=== PATIENT | male | born 1950 | race Caucasian/White ===

== ENCOUNTER 2018-10-08 21:42 | Inpatient (IN) | payer OTHER, MEDICAID ==
[~2018-10-08] VITALS: Ht 168.9 cm; Wt 64.5 kg
[~2018-10-08 21:42] MED LIST: ISOS30TA6 PO
[2018-10-08 21:48] VITALS: BP_SYST 164
--- NOTE | 2018-10-08 22:00 | NUR ---
Placed in room 7 . Placed on tile professional, blood pressure machine and pulse oximeter. To gown for exam. Side rails up. Report given to VIVIANA BUNDY.
--- NOTE | 2018-10-08 22:03 | NUR ---
Pt BIB ALS for possible overdose. Family states pt smoked marijuana and possibly took unknown amount of Hydrocodone. Upon assessment pt was able to answer questions appropriately but slow to respond. Pt also states he did smoke this evening but denies taking Hydrocodone. Pt denies chest pain, SOB, N/V or any other symptoms at this time. Vitals are stable, will continue to monitor.
--- NOTE | 2018-10-08 22:19 | NUR ---
Pt's daughter called and ask to be updated with any status change. [phone] Alanis
--- NOTE | 2018-10-08 22:32 | NUR ---
Patient pulled out his IV from L A/C. He stated " I have to go to the bathroom". Taped and applied dressing. Educated patient to ask assistance from staff if needed.
--- NOTE | 2018-10-08 23:20 | NUR ---
Pt is resting in bed no acute distress noted at this time
[2018-10-08] MEDS ORDERED: NACL 0.9% 1,000 ML IV ONE (23:27)
[2018-10-08 23:57] LABS: BILIRUBIN,URINE NEGATIVE (NEGATIVE); CLARITY/URINE CLEAR (CLEAR); COLOR,URINE YELLOW (YELLOW); GLUCOSE,URINE 1+ (NEGATIVE); KETONES,URINE NEGATIVE (NEGATIVE); LEUKOCYTE ESTERASE ,URINE NEGATIVE (NEGATIVE); NITRITE, URINE NEGATIVE (NEGATIVE); PROTEIN URINE TRACE (NEGATIVE); UROBILINOGEN,URINE 0.2 (0.2-1.0)
[2018-10-09] VITALS (8 sets, daily range): BP systolic 132–175
[2018-10-09 00:04] LABS: BASOPHILS # (AUTO) 0.1 K/uL (0.0-0.2); BASOPHILS % (AUTO) 0.5 % (0.0-2.0); EOSINOPHILS # (AUTO) 0.5 K/uL (0.0-0.4); EOSINOPHILS % (AUTO) 3.9 % (0.0-4.0); HEMATOCRIT 47.8 % (36-54); HEMOGLOBIN 15.6 g/dL (14.0-18.0); LYMPHOCYTES # (AUTO) 1.8 K/uL (1.0-5.5); LYMPHOCYTES % (AUTO) 15.4 % (20.5-51.5); MEAN CORPUSCULAR HEMOGLOBIN 32 pg (27-31); MEAN CORPUSCULAR HGB CONC 33 % (32-36); MEAN CORPUSCULAR VOLUME 96 fL (79.0-98.0); MONOCYTES # (AUTO) 0.7 K/uL (0.0-1.0); MONOCYTES % (AUTO) 6.1 % (1.7-9.3); NEUTROPHILS # (AUTO) 8.5 K/uL (1.8-7.7); NEUTROPHILS % (AUTO) 74.1 % (40.0-70.0); PLATELET COUNT (AUTO) 287 K/uL (130-430); RED BLOOD CELL COUNT(AUTO) 4.97 MIL/uL (4.2-6.2); RED CELL DISTRIBUTION WIDTH 12.6 % (9.0-15.0); WHITE BLOOD COUNT (AUTO) 11.6 K/uL (4.8-10.8)
[2018-10-09 00:05] LABS: ANION GAP 13 (5-15); BLOOD, URINE TRACE (NEGATIVE); CALCIUM 9.4 mg/dL (8.4-11.0); CHLORIDE 101 mmol/L (98-107); CREATININE 1.18 mg/dL (0.55-1.30); GLUCOSE 112 mg/dL (70-99); POTASSIUM 3.7 mmol/L (3.5-5.1); SODIUM SERUM 140 mmol/L (136-145); UREA NITROGEN, BLOOD 21 mg/dL (8-21)
--- NOTE | 2018-10-09 00:05 | NUR ---
Patient transported to radiology via gurney, accompanied by rad staff.
[2018-10-09 00:07] LABS: BACTERIA,URINE RARE /HPF (None Seen); WBC,URINE 0-3 /HPF (0-3)
[2018-10-09 00:08] LABS: CANNABINOID, URINE POSITIVE (NEG <=50); OPIATE, URINE POSITIVE (NEG <=100)
[2018-10-09 00:09] LABS: UR TRICYCLIC ANTIDEPRESSANTS POSITIVE (NEG <=300); URINE METHADONE POSITIVE (NEG <=200); URINE OXYCODONE SCREEN POSITIVE (NEG <=100)
[2018-10-09 00:10] LABS: BARBITURATE, URINE NEGATIVE (NEG <=200); BENZODIAZEPINE, URINE NEGATIVE (NEG <=150); COCAINE, URINE NEGATIVE (NEG <=150); METHAMPHETAMINES SCREEN,URINE NEGATIVE (NEG <=500); PHENCYCLIDINE SCREEN,URINE NEGATIVE (NEG <=25); PROTHROMBIN TIME 10.7 SECS (9.5-12.5); URINE AMPHETAMINE NEGATIVE (NEG <=500); URINE PROPOXYPHENE SCREEN NEGATIVE (NEG <=300)
[2018-10-09 00:11] LABS: ALANINE AMINOTRANSFERASE 57 U/L (12-78); ALBUMIN 4.3 g/dL (3.4-4.8); ASPARTATE AMINOTRANSFERASE 130 U/L (10-37); TOTAL BILIRUBIN 0.5 mg/dL (0.0-1.0)
[2018-10-09 00:14] LABS: ALCOHOL, BLOOD < 3 mg/dL (<10); GFR AFRICAN AMERICAN 79 mL/min (>90)
--- NOTE | 2018-10-09 00:20 | NUR ---
Pt returned from radiology in stable condition. No acute distress noted at this time. Will continue to monitor.
[2018-10-09] MEDS ORDERED: ASPIRIN 81 MG TAB.CHEW PO ONE (00:30)
--- NOTE | 2018-10-09 01:00 | NUR ---
Patient resting quietly in no acute distress, awaiting dispo.
[2018-10-09] MEDS ORDERED: CYM30 PO (01:01)
[2018-10-09] MEDS ORDERED: IRBE75TA29 PO (01:02)
[2018-10-09] MEDS ORDERED: HYDR-3606 PO (01:05)
[2018-10-09] MEDS ORDERED: HYDR-3110 PO (01:05)
--- NOTE | 2018-10-09 01:20 | NUR ---
Patient will be admitted to care of Dr Hermosillo. Admitted to tele unit. Will go to room 135 then 107. Belongings list completed. Summary report printed. Report will be given at bedside. Transfer to tele room 135 then 107 via ACLS protocol. Licensed nurse present. IV present no signs or symptoms of infiltration.
--- NOTE | 2018-10-09 01:35 | NUR ---
ADMISSION: The patient, JANE PRICE, 68 y/o, M admitted by JOSHUA REYES MD, with the diagnosis of NSTEMI .was given written information regarding hospital policies, unit procedures and contact persons.
--- NOTE | 2018-10-09 01:40 | NUR ---
ROUNDS PATIENT IN BED, NOT IN DISTRESS, VITALS STABLE, DENIES ANY PAIN AND DISCOMFORT AT THIS TIME. ADMISSION ASSESSMENT DONE AND DOCUMENTED. SEE FLOWSHEET. PLAN OF CARE DISCUSSED AND PATIENT VERBALIZED UNDERSTANDING. PATIENT ORIENTED TO HIS ROOM, PHONE AND CALL LIGHT. PLAN OF CARE DISCUSSED AND PATIENT VERBALIZED UNDERSTANDING. NEEDS ATTENDED TO. CALL LIGHT PLACED WITHIN REACH.
--- NOTE | 2018-10-09 01:53 | NUR ---
Consultation Paged Reason for Consultation: Cardiology Was consult called: Y Person who was notified: Instructional Design Specialist 22 Consulting Physician: Jeferson Boo Levers Lace Machine Operator Ordering Physician: Dr. Hermosillo
--- NOTE | 2018-10-09 04:05 | NUR ---
PATIENT RESTING: Patient resting quietly. No acute distress noted. Vital signs within normal range.
--- NOTE | 2018-10-09 06:34 | NUR ---
CLOSING NOTES PATIENT AWAKE, VITALS STABLE, DENIES ANY PAIN AND DISCOMFORT AT THIS TIME. ALL NEEDS ATTENDED TO. FLU VACCINE GIVEN ORDERED. SAFETY AND FALL PRECAUTION MEASURES MAINTAINED. CALL LIGHT PLACED WITHIN REACH.
[2018-10-09] MEDS ORDERED: *LOVENOX 1MG/KG Q12H/PHARMACY XX PRN (06:45)
[2018-10-09] MEDS ORDERED: ONDANSETRON HCL 4 MG/2 ML VIAL IVP PRN (06:45)
[2018-10-09] MEDS ORDERED: LORazepam 2 MG/ML VIAL IVP PRN (06:45)
[2018-10-09] MEDS ORDERED: ALBUTEROL SULFATE 0.083% 2.5 MG/3 ML VIAL.NEB INH PRN (06:45)
[2018-10-09 07:15] LABS: CALCIUM 8.6 mg/dL (8.4-11.0); CREATININE 0.91 mg/dL (0.55-1.30)
[2018-10-09 07:22] LABS: ALBUMIN 3.4 g/dL (3.4-4.8); TOTAL BILIRUBIN 0.5 mg/dL (0.0-1.0)
--- NOTE | 2018-10-09 07:28 | NUR ---
OPENING NOTE PT IN BED EYES CLOSED, NO DISTRESS NOTED, CALL LIGHT VISIBLY WITHIN REACH, BED ALARM IN PLACE WITH BED IN THE LOWEST POSITION.
--- NOTE | 2018-10-09 08:40 | NUR ---
BRAID PATTERN SETTER AT BEDSIDE.
--- NOTE | 2018-10-09 08:40 | NUR ---
CONSULTATION PAGED REASON FOR CONSULTATION:ELEVATED TROPONIN WAS CONSULT CALLED?Y PERSON WHO WAS NOTIFIED:EDUARDO CONSULTING PHYSICIAN:MAURY BUSH DRYWALL CONTRACTOR SPECIALTY:CARDIO DRYWALL CONTRACTOR PHONE NUMBER:[phone] ORDERING PHYSICIAN:EDDIE GARIBAY
[2018-10-09] MEDS ORDERED: ENALAPRILAT DIHYDRATE 1.25 MG/ML VIAL IVP PRN (08:45)
[2018-10-09] MEDS: ISOSORBIDE MONONITRATE 30 MG TAB.ER.24H PO SCH (08:55)
[2018-10-09] MEDS: LOSARTAN POTASSIUM 25 MG TABLET PO SCH (08:56)
[2018-10-09] MEDS: DULoxetine HCL 30 MG CAPSULE.DR (CYMBALTA) PO SCH ×2 (08:56→22:03)
[2018-10-09] MEDS: ENOXAPARIN SODIUM 60 MG/0.6 ML SYRINGE SUBCUT SCH ×2 (08:59→22:08)
[2018-10-09] MEDS ORDERED: ASPIRIN 325 MG TABLET PO SCH (09:00)
--- NOTE | 2018-10-09 09:06 | NUR ---
AM MEDS GIVEN. PT TOLERATED WELL, NO DISTRESS NOTED. SAFETY MAINTAINED.
--- NOTE | 2018-10-09 10:21 | NUR ---
Nutrition Update Edmundo Scale 18 noted. Pt admitted for non-STEMI. Diet: cardiac BMI: 22.6 kg/m2 RD to follow per nutrition care standards.
[2018-10-09 10:31] LABS: BASOPHILS # (AUTO) 0.1 K/uL (0.0-0.2); BASOPHILS % (AUTO) 0.7 % (0.0-2.0); EOSINOPHILS # (AUTO) 0.5 K/uL (0.0-0.4); EOSINOPHILS % (AUTO) 6.7 % (0.0-4.0); HEMATOCRIT 41.4 % (36-54); HEMOGLOBIN 13.7 g/dL (14.0-18.0); LYMPHOCYTES # (AUTO) 2.2 K/uL (1.0-5.5); LYMPHOCYTES % (AUTO) 29.8 % (20.5-51.5); MEAN CORPUSCULAR HEMOGLOBIN 32 pg (27-31); MEAN CORPUSCULAR HGB CONC 33 % (32-36); MEAN CORPUSCULAR VOLUME 96 fL (79.0-98.0); MONOCYTES # (AUTO) 0.5 K/uL (0.0-1.0); MONOCYTES % (AUTO) 7.2 % (1.7-9.3); NEUTROPHILS % (AUTO) 55.6 % (40.0-70.0); PLATELET COUNT (AUTO) 250 K/uL (130-430); RED BLOOD CELL COUNT(AUTO) 4.33 MIL/uL (4.2-6.2); RED CELL DISTRIBUTION WIDTH 12.7 % (9.0-15.0); WHITE BLOOD COUNT (AUTO) 7.3 K/uL (4.8-10.8)
--- NOTE | 2018-10-09 11:44 | NUR ---
Manager Auto Note Correct contact number for patient's son, Ludin Narvaez: [phone]. Patient referred to Manager Auto due to positive Methadone screen. DIRECTOR OF MARKETING ANALYTICS met with patient at bedside. He is alert and oriented but forgetful and loses his train of thought. Patient denies use of any methadone products and did not want information on substance abuse. He admits to 2 hydrocodone tid, marijuana cigarettes up to 6 times a day, and an "antidepressant with some pain medication added in". He denies current alcohol use but abused alcohol in the past. Patient is a [place] and admits to continuing to struggle with the emotional after effects. Patient stated he has not seen a PCP for a long time. He stated he sees his pain management doctor, possibly named something like Ebenezer Cooper. He also sees someone who prescribes his antidepressant; patient is unsure who this is or what his credentials are. Patient admits to times of overwhelming depression but claims to not have discussed this recently with the person prescribing his antidepressant. DIRECTOR OF MARKETING ANALYTICS recommended he discuss this further with the physician who prescribes his antidepressant. Patient denies suicidal intention, claiming close ties to his son, daughter and grandchildren as his reason for living. Patient lives alone but receives help from his son and daughter. Patient stated he is able to get around usually to local stores but needs assistance getting to doctor appointments. His son was interested in In Home Supportive Services. DIRECTOR OF MARKETING ANALYTICS provided written information on IHSS to patient and obtained the correct phone number listed above for Ludin. Phoned Ludin and provided [facility]HSS numbers. Requested HCP YEFRI Hernandez check with patient to determine if transportation to physician appointments is a covered benefit. Manager Auto will remain available.
[2018-10-09] MEDS: MORPHINE 4 MG/ML INJ. SYRINGE IVP PRN (12:49)
[2018-10-09] MEDS: hydrALAZINE HCL 20 MG/ML VIAL IVP PRN (12:49)
--- NOTE | 2018-10-09 12:56 | NUR ---
PRN HYDRALAZINE GIVEN AT THIS TIME, VASOTEC NOT AVAILABLE. PT ALSO C/O PAIN IN HIS BACK GIVEN MORPHINE ORDERED.
--- NOTE | 2018-10-09 15:13 | NUR ---
PT AWAKE ALERT, NO DISTRESS AT THIS TIME. SAFETY MAINTAINED.
--- NOTE | 2018-10-09 16:00 | NUR ---
pt in bed wake denies any distress. safety maintained.
--- NOTE | 2018-10-09 18:51 | NUR ---
closing note all needs met through shift, safety maintained, will endorse care to geoscientist.
--- NOTE | 2018-10-09 19:25 | NUR ---
OPENING NOTE Received report from Meeta. Patient resting in bed awake, alert, oriented x4. Breathing unlabored and even on room air. No signs of distress, no needs at this time. Fall and safety precautions in place. Bed in lowest position, brake on, alarm on, call light within reach. Will continue to monitor.
--- NOTE | 2018-10-09 21:17 | NUR ---
Patient resting in bed awake, alert, oriented x4. Breathing unlabored and even on room air. No signs of distress, no needs at this time. Fall and safety precautions in place. Bed in lowest position, brake on, alarm on, call light within reach. Family at the bedside. Will continue to monitor.
--- NOTE | 2018-10-10 00:07 | NUR ---
Patient is now NPO. Patient resting in bed awake, alert, oriented x4. Breathing unlabored and even on room air. No signs of distress, no needs at this time. Fall and safety precautions in place. Bed in lowest position, brake on, alarm on, call light within reach. Will continue to monitor.
[2018-10-10 01:02] VITALS: BP_SYST 137
--- NOTE | 2018-10-10 02:06 | NUR ---
Patient resting in bed with eyes closed. Breathing unlabored and even on room air. No signs of distress, no needs at this time. Fall and safety precautions in place. Bed in lowest position, brake on, alarm on, call light within reach. Will continue to monitor.
--- NOTE | 2018-10-10 06:50 | NUR ---
CLOSING NOTE Patient resting in bed with eyes closed. Breathing unlabored and even on room air. No signs of distress, no needs at this time. Fall and safety precautions in place. Bed in lowest position, brake on, alarm on, call light within reach. Will endorse cares to day shift nurse.
--- NOTE | 2018-10-10 07:15 | NUR ---
received report from scott Garcia RN at the bedside. patient still asleep. no sob nor distress noted.
[2018-10-10 07:37] VITALS: BP_SYST 142
--- NOTE | 2018-10-10 07:59 | NUR ---
vitals signs stable and documented on NPO status for lexiscan procedure.
--- NOTE | 2018-10-10 08:00 | NUR ---
Acacia BUNDY inject dye for lexiscan.
--- NOTE | 2018-10-10 08:41 | NUR ---
cotton picking machine operator by Acacia BUNDY for lexiscan procedure.
[2018-10-10] MEDS ORDERED: REGADENOSON 0.4 MG/5 ML SYRINGE IVP ONE (09:00)
--- NOTE | 2018-10-10 09:54 | NUR ---
still on the procedure for lexiscan
[2018-10-10] MEDS: ENOXAPARIN SODIUM 60 MG/0.6 ML SYRINGE SUBCUT SCH ×2 (10:21→20:03)
--- NOTE | 2018-10-10 10:23 | NUR ---
patient came back. but patient nauseated zofran 4 mg iv given. made comfortable.
[2018-10-10 12:04] VITALS: BP_SYST 203
[2018-10-10] MEDS: MORPHINE 4 MG/ML INJ. SYRINGE IVP PRN (12:26)
--- NOTE | 2018-10-10 12:31 | NUR ---
morphine sulfate 2 mg iv given for abdominal pain. made comfortable.
--- NOTE | 2018-10-10 14:15 | NUR ---
dr metz came made order for npo and ct scan of abdomen
--- NOTE | 2018-10-10 14:36 | NUR ---
DC Plan Requested HCP Shrub Grower referral to follow up with patient post discharge for request for [facility]HSS provider services transferred from his ex- to his son Ludin, transportation resources, and that patient tested positive for Methadone, to provide home assessment and provide care and home resources / behavioral health information. Mary Corrigan, HCP Autism Motor Specialist [phone]
[2018-10-10] MEDS: hydrALAZINE HCL 20 MG/ML VIAL IVP PRN (14:55)
--- NOTE | 2018-10-10 14:58 | NUR ---
blood pressure medication given bp 196/115
[2018-10-10] MEDS ORDERED: DIATR MEGLU/DIATRIZ SOD 30 ML SOLUTION PO ONE (15:44)
--- NOTE | 2018-10-10 16:00 | NUR ---
radiologist made aware of the refusal for todays procedure.
[2018-10-10 16:02] VITALS: BP_SYST 140
--- NOTE | 2018-10-10 16:15 | NUR ---
LATEST BP IS 142/74. QUITE AT THIS TIME. STILL BIT NAUSEAOUS
--- NOTE | 2018-10-10 16:16 | NUR ---
dr Breen called to informed that patient refusing to have Ct abdomen due nausea, requesting to have it tomorrow. awaiting to call back. oral contrast is on the refrigerator , as per radiology advice.
--- NOTE | 2018-10-10 16:45 | NUR ---
awaiting for dr metz to call.
--- NOTE | 2018-10-10 16:54 | NUR ---
daughter came and informed family regarding the situation.
[2018-10-10] MEDS: ASPIRIN 81 MG TAB.CHEW PO SCH (17:04)
[2018-10-10] MEDS: LOSARTAN POTASSIUM 25 MG TABLET PO SCH (17:04)
[2018-10-10] MEDS: DULoxetine HCL 30 MG CAPSULE.DR (CYMBALTA) PO SCH ×2 (17:04→20:03)
[2018-10-10] MEDS: ISOSORBIDE MONONITRATE 30 MG TAB.ER.24H PO SCH (17:05)
[2018-10-10] MEDS: D5NS 1,000 ML IV SCH (17:08)
--- NOTE | 2018-10-10 17:39 | NUR ---
second call for dr mejía. awaiting to call back. for orders.
--- NOTE | 2018-10-10 17:49 | NUR ---
dr mejía made orders.
--- NOTE | 2018-10-10 18:00 | NUR ---
eating the dinner tray. refused soup
--- NOTE | 2018-10-10 18:15 | NUR ---
no pain noted. no acute distress noted. no nausea noted.
--- NOTE | 2018-10-10 19:15 | NUR ---
endorsed to incoming nurse Abigail BUNDY and Gabby BUNDY.
--- NOTE | 2018-10-10 19:15 | NUR ---
OPENING NOTE RECEIVED CARE OF PT. PT ATTEMPTING TO GET OUT OF BED, INSTRUCTED TO CALL FOR NURSE ASSISTANCE. PT ASSISTED TO RESTROOM, GAIT NOTED TO BE UNSTEADY. NO ACUTE DISTRESS NOTED AT THIS TIME. PT REPOSITIONED IN BED, SAFETY PRECAUTIONS IN PLACE: BED IN LOWEST POSITION, CALL LIGHT WITH PT, SIDE RAILS UP X 2, BED ALARM ON. WILL MONITOR.
[2018-10-10] MEDS ORDERED: HYDROcodone/ACETAMIN 10-325 MG TAB PO ONE (19:30)
--- NOTE | 2018-10-10 19:34 | NUR ---
PAGED PAGED GALLEY STRIPPER PHYSICIAN DR. REYES @ [phone].
[2018-10-10 20:00] VITALS: BP_SYST 143
--- NOTE | 2018-10-10 20:02 | NUR ---
PAIN/NORCO ADMINISTERED PT REPORTING PAIN IN LOWER ABDOMEN. NORCO 10-325 MG TABLET ADMINISTERED PO. PT EDUCATED REGARDING MEDICATION AND POTENTIAL SIDE EFFECTS. SAFETY PRECAUTIONS OBSERVED. WILL MONITOR.
--- NOTE | 2018-10-10 20:02 | NUR ---
AGNES MONTES DE OCA PAGEAlissa PURCHASING MANAGER PHYSICIAN, DR. REYES @ [phone]. SPOKE WITH EDWIN. Addendum: 10/10/18 at 2004 by Elizabeth Stapleton [place]/ SECOND PAGE CALLED
--- NOTE | 2018-10-10 20:11 | NUR ---
SPOKE WITH DR. REYES REGARDING PT'S REQUEST FOR A SLEEPING MEDICATION. NEW ORDERS RECEIVED. WILL CARRY OUT.
[2018-10-10] MEDS ORDERED: ZOLPIDEM TARTRATE 5 MG TABLET PO PRN (20:15)
--- NOTE | 2018-10-10 22:04 | NUR ---
INSOMNIA/AMBIEN ADMINISTERED PT REPORTING INSOMNIA. AMBIEN 5 MG PO ADMINISTERED. PT EDUCATED REGARDING MEDICATIONS AND POTENTIAL SIDE EFFECTS. PT INSTRUCTED TO CALL FOR ASSISTANCE. SAFETY PRECAUTIONS OBSERVED. WILL MONITOR.
--- NOTE | 2018-10-10 23:15 | NUR ---
NPO EDUCATION PT EDUCATED REGARDING NPO STATUS AFTER MIDNIGHT. PT VERBALIZED UNDERSTANDING. WILL MONITOR.
--- NOTE | 2018-10-11 00:05 | NUR ---
NURSING NOTE PT RESTING IN BED WITH EYES CLOSED. VISIBLE SYMMETRICAL RISE AND FALL OF CHEST. NO SIGNS OF ACUTE DISTRESS NOTED. IVF INFUSING ORDERED. NO SIGN OF INFILTRATION AT IV SITE. SAFETY PRECAUTIONS IN PLACE: BED IN LOWEST POSITION, CALL LIGHT WITH PT, SIDE RAILS UPX2, CLOSE TO NURSES STATION, BED ALARM ON. WILL MONITOR. Addendum: 10/11/18 at 0415 by Gabby Gaspar RN NPO CONE PLACED AT BEDSIDE.
[2018-10-11] MEDS: D5NS 1,000 ML IV SCH ×2 (00:23→08:30)
[2018-10-11 00:59] VITALS: BP_SYST 99
--- NOTE | 2018-10-11 02:10 | NUR ---
NURSING NOTE PT RESTING IN BED WITH EYES CLOSED. VISIBLE SYMMETRICAL RISE AND FALL OF CHEST TO ROOM AIR. IVF INFUSING, NO INFILTRATION AT IV SITE. SAFETY PRECAUTIONS OBSERVED. WILL MONITOR.
--- NOTE | 2018-10-11 04:09 | NUR ---
RESTING PT RESTING IN BED WITH EYES CLOSED. PT HAS VISIBLE SYMMETRICAL RISE AND FALL OF CHEST TO ROOM AIR. IVF ARE INFUSING, NO INFILTRATION AT IV SITE. SAFETY PRECAUTIONS IMPLEMENTED: BED IN LOWEST POSITION, CALL LIGHT WITH PT, SIDE RAILS UP X 2, CLOSE TO NURSES STATION, BED ALARM ON. WILL MONITOR.
--- NOTE | 2018-10-11 06:25 | NUR ---
CLOSING NOTE PT RESTING IN BED WITH EYES CLOSED. EASILY AWAKEN TO SPEECH. VISIBLE SYMMETRICAL RISE AND FALL OF CHEST TO ROOM AIR. NO SIGNS OF DISTRESS. IVF INFUSING AT ORDERED RATE WITH NO SIGN OF INFILTRATION AT IV SITE. SAFETY PRECAUTIONS IN PLACE. ALL NEEDS MET DURING SHIFT. WILL ENDORSE CARE TO DAY SHIFT RN.
[2018-10-11 07:30] VITALS: BP_SYST 130
--- NOTE | 2018-10-11 07:30 | NUR ---
AM NOTES Patient laying in bed resting. No s/s of distress or SOB. No pain reported. IV site, patent, intact, dressing is dry, IVF running as ordered. Bed in lowest position, call light within reach, bed alarm on, 3 side rails up. Encouraged to use call light when in need of assistance.
[2018-10-11] MEDS: DULoxetine HCL 30 MG CAPSULE.DR (CYMBALTA) PO SCH (08:18)
[2018-10-11] MEDS: ASPIRIN 81 MG TAB.CHEW PO SCH (08:18)
[2018-10-11] MEDS: LOSARTAN POTASSIUM 25 MG TABLET PO SCH (08:19)
[2018-10-11] MEDS: ISOSORBIDE MONONITRATE 30 MG TAB.ER.24H PO SCH (08:19)
[2018-10-11] MEDS: ENOXAPARIN SODIUM 60 MG/0.6 ML SYRINGE SUBCUT SCH (08:20)
--- NOTE | 2018-10-11 08:30 | NUR ---
MED PASS Patient refused Lovenox. Patient educated on indications, s/e and benefits of medication, patient verbalized understanding. Patient is also on Plavix and ASA, patient ambulates to restroom.
--- NOTE | 2018-10-11 08:35 | NUR ---
REFUSED ORAL CONTRAST Patient refused to drunk oral contrast for CT of the abdomen.
[2018-10-11] MEDS ORDERED: ATORVASTATIN 20 MG TABLET PO SCH (09:00)
--- NOTE | 2018-10-11 09:00 | NUR ---
MD VISIT Dr. Sullivan at bedside to eval patient. MD aware of patient's refusal to drink oral contrast.
[2018-10-11] MEDS ORDERED: METO25TA6 PO (09:33)
[2018-10-11] MEDS ORDERED: ASPI-1154 PO (09:34)
[2018-10-11] MEDS ORDERED: LIP10 PO (09:34)
[2018-10-11 09:59] VITALS: BP_SYST 133
--- NOTE | 2018-10-11 11:00 | NUR ---
ROUNDS Patient sitting up in bed aaox4. No s/s of distress or SOB. No pain reported. All needs being met. Bed in lowest position, call light within reach, bed alarm on, 3 side rails up. Encouraged to use call light when in need of assistance.
[2018-10-11 11:03] LABS: CHOLESTEROL 144 mg/dL (<200); HDL CHOLESTEROL 41 mg/dL (>45); LDL CHOLESTEROL 88 mg/dL (<100); TRIGLYCERIDES 86 mg/dL (30-150)
[2018-10-11 11:31] VITALS: BP_SYST 121
--- NOTE | 2018-10-11 13:00 | NUR ---
D/C Patient Patient given medication reconciliation form and D/C instructions. Exit Care provided. Patient verbalized understanding. MD discussed with patient the results and treatment provided. Ambulatory with steady gait for discharge to home. Patient in stable condition, ID band removed. IV catheter removed, intact and dressing applied, no active bleeding. Rx of Lopressor, ASA, Lipitor given. Patient educated on pain management. All belongings sent with patient.
--- NOTE | 2018-10-15 10:13 | NUR ---
DISCHARGE FOLLOW UP PHONE CALL: PAPERHANGER AND PAINTER phoned pt @ [phone] on 10/13, 10/14 and 10/15. PAPERHANGER AND PAINTER left messages to call back and inquire on discharge plan status. No phone call received and no further follow up phone call needed at this time.
== END 2018-10-11 13:00 | disposition home or self-care (01) | DRG 302 ==
LOC: SED 21:42 → STU 10-09 01:12
PROVIDERS: ADMIT Internal Medicine; ATTEND Internal Medicine
DX: I25.10 Atherosclerotic heart disease of native coronary artery without angina pectoris (principal); G92 Toxic encephalopathy; I10 Essential (primary) hypertension; E78.5 Hyperlipidemia, unspecified; F12.90 Cannabis use, unspecified, uncomplicated; F17.210 Nicotine dependence, cigarettes, uncomplicated; R73.03 Prediabetes; F32.9 Major depressive disorder, single episode, unspecified; G89.4 Chronic pain syndrome; Z88.0 Allergy status to penicillin; Z91.19 Patient's noncompliance with other medical treatment and regimen
CPT/HCPCS: 36415; 70450-TC; 71045; 80053; 80061; 80307; 81000-TC; 84484; 85025; 85610-TC; 85730-TC; 90656; 93005; 93017; 93306; 96360; 99285; A9500; G0378; G0482; J0360; J1650; J2060; J2270; J2405; J2785; J7042; Q9964

== ENCOUNTER 2019-09-05 18:32 | Emergency (ER) | payer OTHER, MEDICAID ==
[~2019-09-05] VITALS: Ht 167.6 cm; Wt 77.1 kg
[~2019-09-05 18:32] MED LIST changes: +ASPI-1457 PO; +CYM30 PO; +HYDR-3110 PO; +IRBE75TA29 PO; +LIP10 PO; +METO25TA6 PO
[2019-09-05 19:45] VITALS: BP_SYST 159
== END 2019-09-05 21:00 | disposition left against medical advice (07) ==
LOC: SED 18:32
DX: M79.18 Myalgia, other site (principal); Z53.21 Procedure and treatment not carried out due to patient leaving prior to being seen by health care provider

== ENCOUNTER 2022-01-12 16:28 | Inpatient (IN) | payer OTHER, MEDICAID ==
[~2022-01-12] VITALS: Ht 167.6 cm; Wt 56.0 kg
[~2022-01-12 16:28] MED LIST changes: -HYDR-3110 PO; +HYDR-4280 PO; -ISOS30TA6 PO; +ISOS30TA85 PO
[2022-01-12 16:30] VITALS: BP_SYST 104
--- NOTE | 2022-01-12 16:30 | NUR ---
Placed in room 6 . Placed on monitoring coordinator, blood pressure machine and pulse oximeter. To gown for exam. Side rails up. Report given to GREGOR BAH.
--- NOTE | 2022-01-12 16:35 | NUR ---
ER DR. HAIR AT THE BEDSIDE EXAMINING PT
--- NOTE | 2022-01-12 16:48 | NUR ---
71YO M BIBA FROM HOME WITH C/O LEFT-SIDED CHEST PAIN SINCE YESTERDAY AFTERNOON. CP DESCRIBED 7/10, PRESSURE-LIKE, CONSTANT, NON-RADIATING. PT ALSO COMPLAINS OF NAUSEA ABD GENERAL WEAKNESS. PT WITH HX OF CVA 6 MONTHS AGO AND 1.5 WEEKS AGO, HTN AND BLINDNESS, RIGHT EYE. PT AOX4, GCS 15. PT TACHY AT 111 BPM. ERMD MADE AWARE OF PT STATUS. PMH: CVA X 2, HTN, BLINDNESS (R EYE)
[2022-01-12] MEDS ORDERED: ASPIRIN 81 MG TAB.CHEW PO ONE (17:00)
[2022-01-12 17:03] LABS: BASOPHILS % (AUTO) 0.3 % (0.0-2.0); HEMOGLOBIN 12.3 g/dL (14.0-18.0); LYMPHOCYTES # (AUTO) 1.6 K/uL (1.0-5.5); LYMPHOCYTES % (AUTO) 12.9 % (20.5-51.5); MEAN CORPUSCULAR HEMOGLOBIN 31 pg (27-31); MEAN CORPUSCULAR HGB CONC 34 % (32-36); MEAN CORPUSCULAR VOLUME 90 fL (79.0-98.0); MONOCYTES % (AUTO) 8.1 % (1.7-9.3); NEUTROPHILS # (AUTO) 9.7 K/uL (1.8-7.7); NEUTROPHILS % (AUTO) 78.7 % (40.0-70.0); PLATELET COUNT (AUTO) 368 K/uL (130-430); RED CELL DISTRIBUTION WIDTH 13.7 % (9.0-15.0); WHITE BLOOD COUNT (AUTO) 12.4 K/uL (4.8-10.8)
--- NOTE | 2022-01-12 17:13 | NUR ---
CARON SWAB DONE. WALKED TO LAB BY STUDENT.
[2022-01-12 17:34] LABS: ALANINE AMINOTRANSFERASE 22 U/L (12-78); ALBUMIN 3.6 g/dL (3.4-4.8); ANION GAP 15 (5-15); ASPARTATE AMINOTRANSFERASE 26 U/L (10-37); CALCIUM 8.6 mg/dL (8.4-11.0); CHLORIDE 97 mmol/L (98-107); CREATININE 1.25 mg/dL (0.55-1.30); GLUCOSE 131 mg/dL (70-99); SODIUM SERUM 134 mmol/L (136-145); TOTAL BILIRUBIN 0.6 mg/dL (0.0-1.0); UREA NITROGEN, BLOOD 27 mg/dL (8-21)
--- NOTE | 2022-01-12 17:35 | NUR ---
PT TOOK 4 TABS OF ASPIRIN EN ROUTE TO ER. ASPIRIN ORDER NOT ADMINISTERED.
[2022-01-12 17:37] LABS: POTASSIUM 3.2 mmol/L (3.5-5.1)
[2022-01-12] MEDS ORDERED: NITROGLYCERIN 250 ML IV ONE (17:45)
[2022-01-12] MEDS ORDERED: CARVEDILOL 6.25 MG TABLET (COREG) PO ONE (18:30)
[2022-01-12] MEDS ORDERED: NS 250 ML IV ONE (18:30)
[2022-01-12] MEDS ORDERED: ENOXAPARIN SODIUM 60 MG/0.6 ML SYRINGE SUBCUT ONE (18:30)
--- NOTE | 2022-01-12 19:00 | NUR ---
RECD REPORT FROM GREGOR PEREZ FOR CONTINUITY OF CARE.
--- NOTE | 2022-01-12 19:37 | NUR ---
report given to veronica benton. all cares transferred at this time.
--- NOTE | 2022-01-12 20:00 | NUR ---
1929 INITIAL ASSESSMENT COMPLETED PATIENT VERBALIZED SHE DONT WANNA BE ADMITTED HERE WNTED TO GO TO [facility] HE GETS HIS CARE OVER THERE.DR HAIR SPOKE TO PATIENT, AWAITING FOR INSURANCE TO AUTHORIZED FOR TRANSFER.
--- NOTE | 2022-01-12 21:00 | NUR ---
FOR ADMISSION AWAITING FOR ADMIT ORDERS.
--- NOTE | 2022-01-12 21:58 | NUR ---
Admit bed requested Patient will be admitted to care of . Admitted to TELE unit. Diagnosis NSTEMI Inpatient (Yes or No) YES Observation (Yes or No) NO Orientation concerns or request close to nursing station (Yes or No) NO Covid Status NEG On vent or bipap NO Isolation requirements NO Needs a sitter NO From Home (Yes or if No enter name of facility) YES Requires Dialysis (Yes or No) NO Med Rec Completed (Yes of No) PENDING
[2022-01-12] MEDS ORDERED: ACETAMINOPHEN 325 MG TABLET PO PRN (22:00)
[2022-01-12] MEDS ORDERED: ALBUTEROL SULFATE 0.083% 2.5 MG/3 ML VIAL.NEB INH PRN (22:00)
[2022-01-12] MEDS ORDERED: ONDANSETRON HCL 4 MG/2 ML VIAL IVP PRN (22:00)
[2022-01-12] MEDS ORDERED: *LOVENOX 1MG/KG Q12H/PHARMACY XX ONE (22:15)
[2022-01-12] MEDS ORDERED: POTASSIUM CHLORIDE 20 MEQ TAB.PRT.SR PO ONE (22:15)
--- NOTE | 2022-01-12 23:15 | NUR ---
BROUGHT TO [facility] VIA [facility] REPORT GIVEN TO SEBASTIAN BUNDY.
[2022-01-12] MEDS: HYDROcodone/ACETAMIN 5-325 MG TAB (NORCO/ VICODIN) PO PRN (23:16)
[2022-01-13 00:02] VITALS: BP_SYST 135
[2022-01-13] MEDS ORDERED: LORazepam 2 MG/ML VIAL IVP ONE (00:45)
[2022-01-13 02:21] VITALS: BP_SYST 135
--- NOTE | 2022-01-13 02:58 | NUR ---
THIS IS AN ADMISSION NOTE OF A 71 YEAR OLD FEMALE UNDER THE CARE OF DOCTOR DEBBIE FOR NON-ST SEGMENT MYOCARDIAL INFARCT. PATIENT NOTES HE IS HAVING PAIN FOR WHICH HE WAS GIVEN NORCO. PATIENT IS UNDER THE CARE OF [facility] AND NOTES HE IS SEEKING CARE FOR SYMPTOMS OF POST TRAUMATIC STRESS DISORDER CURRENTLY RELATED TO HIS TWO TOURS OF DUTY IN [place]. MAXI CHEEMA RN
[2022-01-13 07:45] VITALS: BP_SYST 137
--- NOTE | 2022-01-13 08:00 | NUR ---
am notes received pt in bed. a/ox3. vitals stable.denies any sob. sr on tele .c/o of chest pressure 12/10. res even and unlabored. safety and fall precautions in place. poc discussed with pt . verbalized understanding. call light erick reach will conitnue to monitor
[2022-01-13 08:25] LABS: BASOPHILS # (AUTO) 0.1 K/uL (0.0-0.2); BASOPHILS % (AUTO) 0.6 % (0.0-2.0); EOSINOPHILS # (AUTO) 0.1 K/uL (0.0-0.4); EOSINOPHILS % (AUTO) 0.8 % (0.0-4.0); HEMOGLOBIN 12.7 g/dL (14.0-18.0); LYMPHOCYTES # (AUTO) 2.3 K/uL (1.0-5.5); LYMPHOCYTES % (AUTO) 26.5 % (20.5-51.5); MEAN CORPUSCULAR HEMOGLOBIN 31 pg (27-31); MEAN CORPUSCULAR HGB CONC 34 % (32-36); MEAN CORPUSCULAR VOLUME 91 fL (79.0-98.0); MONOCYTES # (AUTO) 0.9 K/uL (0.0-1.0); MONOCYTES % (AUTO) 10.2 % (1.7-9.3); NEUTROPHILS # (AUTO) 5.3 K/uL (1.8-7.7); NEUTROPHILS % (AUTO) 61.9 % (40.0-70.0); PLATELET COUNT (AUTO) 358 K/uL (130-430); RED BLOOD CELL COUNT(AUTO) 4.08 MIL/uL (4.2-6.2); RED CELL DISTRIBUTION WIDTH 13.7 % (9.0-15.0); WHITE BLOOD COUNT (AUTO) 8.5 K/uL (4.8-10.8)
[2022-01-13] MEDS: ASPIRIN 81 MG TABLET(ECOTRIN) PO SCH (08:31)
[2022-01-13] MEDS: ENOXAPARIN SODIUM 60 MG/0.6 ML SYRINGE SUBCUT SCH ×2 (08:35→22:16)
[2022-01-13 08:40] LABS: ALANINE AMINOTRANSFERASE 26 U/L (12-78); ALBUMIN 3.6 g/dL (3.4-4.8); ANION GAP 9 (5-15); ASPARTATE AMINOTRANSFERASE 28 U/L (10-37); CALCIUM 8.6 mg/dL (8.4-11.0); CHLORIDE 100 mmol/L (98-107); CREATININE 1.42 mg/dL (0.55-1.30); GLUCOSE 98 mg/dL (70-99); POTASSIUM 3.7 mmol/L (3.5-5.1); SODIUM SERUM 137 mmol/L (136-145); TOTAL BILIRUBIN 0.5 mg/dL (0.0-1.0); UREA NITROGEN, BLOOD 32 mg/dL (8-21)
[2022-01-13] MEDS ORDERED: DULoxetine HCL 30 MG CAPSULE.DR (CYMBALTA) PO SCH (09:00)
[2022-01-13] MEDS ORDERED: METOPROLOL TARTRATE 25 MG TABLET PO SCH (09:00)
[2022-01-13] MEDS ORDERED: ASPIRIN 325 MG TABLET PO SCH (09:00)
[2022-01-13] MEDS ORDERED: LOSARTAN POTASSIUM 25 MG TABLET PO SCH (09:00)
[2022-01-13] MEDS ORDERED: ISOSORBIDE MONONITRATE 20 MG TABLET (ISMO) PO SCH (09:00)
[2022-01-13] MEDS: HYDROcodone/ACETAMIN 5-325 MG TAB (NORCO/ VICODIN) PO PRN (09:10)
--- NOTE | 2022-01-13 10:19 | NUR ---
Grape Cutter JOSELINE Duckworthette responded to a social work consult request ordered by Dr. Breen. SCHEDULING CLERK consulted with GREGOR Rocha to inquire into reason for consult. SCHEDULING CLERK met with patient at bedside. SCHEDULING CLERK completed introductions and provided a business card. Patient was open to contact. Mental Health- Patient discloses previous diagnosis of PTSD. He shares having met with psychiatrist through [place] for medication management. Patient disclosed experiencing flashbacks, hypervigilance, night terrors, and expressed some depression. Social- Patient shares having 2 children, Ludin Narvaez [phone] and Annika Narvaez , 2 grandchildren that serve as his support network. Patient currently resides in [facility]. He expresses being able to attend to his own needs at times, and shares his kids check on him often and assist with his medical care needs. When discussing PTSD, patient expressed feeling alone and feeling that others do not understand "that it is real". SCHEDULING CLERK utilized empathetic and reflective listening techniques to validate and acknowledge patient's feelings. SCHEDULING CLERK encouraged patient to seek [place] support groups and utilize therapy to address PTSD. SCHEDULING CLERK discussed the impact of PTSD and mental health on physical health. Patient provided permission to contact his son to provide VA and other mental health resources. SCHEDULING CLERK will continue to be available as needed Addendum: 01/13/22 at 1129 by Marylou TREVIZO JOSELINE Hickman provided met with patient's son Ludin in lobby with GREGOR Rocha. JOSELINE Noland with [facility] mental health resource packets SCHEDULING CLERK will continue to be available as needed
--- NOTE | 2022-01-13 10:24 | NUR ---
CONSULTATION PAGED REASON FOR CONSULTATION:CHEST PAIN WAS CONSULT CALLED?Y PERSON WHO WAS NOTIFIED:ANGELI CONSULTING PHYSICIAN:CIRO FOUNTAIN SHANK PAPERER SPECIALTY:CARDIO SHANK PAPERER PHONE NUMBER:[phone] REQUESTING PHYSICIAN:BISHOP FOUNTAIN
--- NOTE | 2022-01-13 10:30 | NUR ---
pt got upset with dr umanzor. as per pt dr umanzor asked 'how long u have been smoking' pt status i did not like that doctor did not want him in his room. dr elias notified . new consult received for dr silas elias.
[2022-01-13] MEDS: D5/0.45 NS 1,000 ML IV SCH ×2 (11:00→22:13)
--- NOTE | 2022-01-13 11:00 | NUR ---
dr silas elias here . seen pt.
--- NOTE | 2022-01-13 11:12 | NUR ---
CONSULTATION PAGED REASON FOR CONSULTATION:YOLY WAS CONSULT CALLED?Y PERSON WHO WAS NOTIFIED:RACHEL CONSULTING PHYSICIAN:DANYELL VILLAREAL OPTOMETRIC ASSISTANT SPECIALTY:NEPHYO- OPTOMETRIC ASSISTANT PHONE NUMBER:[phone] REQUESTING PHYSICIAN:BISHOP FOUNTAIN
[2022-01-13] MEDS ORDERED: CLOP75TA32 PO (11:53)
[2022-01-13] MEDS ORDERED: LISI40TA13 PO (11:53)
[2022-01-13] MEDS ORDERED: NOR10 PO (11:53)
[2022-01-13] MEDS ORDERED: CEL20 PO (11:53)
[2022-01-13] MEDS ORDERED: HYDR25TA4 PO (11:53)
[2022-01-13] MEDS ORDERED: ACET325T PO (11:53)
[2022-01-13] MEDS ORDERED: NICOTINE 14 MG/24 HR PATCH.TD24 TD ONE (12:00)
--- NOTE | 2022-01-13 12:00 | NUR ---
pt son here received current medication list.verified with son current med list. entered in med rec.infomed dr jada medina to reconcile med rec
[2022-01-13 12:06] VITALS: BP_SYST 107
[2022-01-13] MEDS ORDERED: METF-834 PO (12:27)
--- NOTE | 2022-01-13 13:45 | NUR ---
late entry pt stable not in acute distress. refusing for iv fluids. seen by dr mynor lynch.not in any acute distress. report given to [facility]
[2022-01-13 19:34] VITALS: BP_SYST 98
[2022-01-13] MEDS ORDERED: ZOLPIDEM TARTRATE 5 MG TABLET PO ONE (20:45)
[2022-01-13] MEDS ORDERED: CARVEDILOL 6.25 MG TABLET (COREG) PO SCH (21:00)
[2022-01-13] MEDS: CARVEDILOL 6.25 MG TABLET (COREG) PO SCH (22:12)
[2022-01-13] MEDS: ATORVASTATIN 20 MG TABLET PO SCH (22:12)
--- NOTE | 2022-01-13 22:58 | NUR ---
SENT CRITICAL TROPONIN MESSAGE VIA ANSWERING SERVICE TO DOCTOR CIRO PENG MD. SPOKE TO SHANNON. MAXI CHEEMA RN
[2022-01-14] VITALS (7 sets, daily range): BP systolic 92–129
--- NOTE | 2022-01-14 02:48 | NUR ---
BOWEL REGIMEN IS NEEDED PER PATIENT SAYS HE ASKED FOR THIS AND HAS NOT RECEIVED. WILL ENDORSE. MAXI CHEEMA RN
[2022-01-14] MEDS: MORPHINE 2 MG/ML INJ. SYRINGE IVP PRN ×3 (05:46→21:00)
--- NOTE | 2022-01-14 05:49 | NUR ---
PATIENT COMPLAINT OF CHEST PAIN AT THIS TIME LIKE BEFORE HOSPITALIZATION HE SAYS WHICH HAPPENED AFTER HIS LABWORK WAS DRAWN WHILE HE WAS STANDING TO URINATE. MAXI CHEEMA RN
[2022-01-14 06:43] LABS: BASOPHILS % (AUTO) 0.6 % (0.0-2.0); EOSINOPHILS # (AUTO) 0.2 K/uL (0.0-0.4); HEMATOCRIT 32.3 % (36-54); HEMOGLOBIN 11.2 g/dL (14.0-18.0); LYMPHOCYTES # (AUTO) 2.1 K/uL (1.0-5.5); LYMPHOCYTES % (AUTO) 28.8 % (20.5-51.5); MEAN CORPUSCULAR HEMOGLOBIN 31 pg (27-31); MEAN CORPUSCULAR HGB CONC 35 % (32-36); MEAN CORPUSCULAR VOLUME 91 fL (79.0-98.0); MONOCYTES # (AUTO) 0.6 K/uL (0.0-1.0); MONOCYTES % (AUTO) 8.4 % (1.7-9.3); NEUTROPHILS # (AUTO) 4.3 K/uL (1.8-7.7); NEUTROPHILS % (AUTO) 59.2 % (40.0-70.0); PLATELET COUNT (AUTO) 292 K/uL (130-430); RED BLOOD CELL COUNT(AUTO) 3.56 MIL/uL (4.2-6.2); RED CELL DISTRIBUTION WIDTH 13.9 % (9.0-15.0); WHITE BLOOD COUNT (AUTO) 7.2 K/uL (4.8-10.8)
[2022-01-14] MEDS: D5/0.45 NS 1,000 ML IV SCH (06:47)
[2022-01-14 06:54] LABS: ANION GAP 8 (5-15); CALCIUM 8.1 mg/dL (8.4-11.0); CHLORIDE 101 mmol/L (98-107); CREATININE 1.29 mg/dL (0.55-1.30); GLUCOSE 120 mg/dL (70-99); POTASSIUM 3.8 mmol/L (3.5-5.1); SODIUM SERUM 137 mmol/L (136-145); UREA NITROGEN, BLOOD 35 mg/dL (8-21)
[2022-01-14 07:03] LABS: PHOSPHORUS 3.7 mg/dL (2.7-4.5)
--- NOTE | 2022-01-14 07:57 | NUR ---
Received patient in bed resting comfortably, AAOX4, presents calm and cooperative, able to express needs. No c/o mild pain or discomfort. Respiration are non- labored on room air. Skin is clean, warm and dry to touch. IV access is patent, dry and secure, no s/sx of redness nor swelling observed. Bed is locked in lowest position for safety, call light in reach. Nurse will continue care, monitor for changes in status.
[2022-01-14] MEDS: ASPIRIN 81 MG TABLET(ECOTRIN) PO SCH (09:29)
[2022-01-14] MEDS: CARVEDILOL 6.25 MG TABLET (COREG) PO SCH ×2 (09:30→22:31)
[2022-01-14] MEDS: NICOTINE 14 MG/24 HR PATCH.TD24 TD SCH (09:30)
[2022-01-14] MEDS: ENOXAPARIN SODIUM 60 MG/0.6 ML SYRINGE SUBCUT SCH ×2 (09:34→21:07)
[2022-01-14] MEDS ORDERED: ACETAMINOPHEN 325 MG TABLET PO SCH (10:30)
--- NOTE | 2022-01-14 11:02 | NUR ---
CONSULTATION PAGED/CALLED Reason for Consultation: Depression Person Who was Notified: Left Message Consulting Physician: Dr. Foreman Split Leather Department Supervisor Specialty: Psych Ordering Physician: Dr. Velasquez Orta
--- NOTE | 2022-01-14 12:05 | NUR ---
Patient in bed resting comfortably. c/o pain. Respiration are non- labored on room air. Skin is clean, warm and dry to touch. IV access is patent, dry and secure, no s/sx of redness nor swelling observed. Bed is locked in lowest position for safety, call light in reach. Nurse will continue care, monitor for changes in status.
--- NOTE | 2022-01-14 13:49 | NUR ---
Notified warehouse supervisor 3rd shift regarding request to coordinate transfer to [facility] Cardiac Time Study Engineer. Case management follow up and endorse to third shift lieutenant nurse.
--- NOTE | 2022-01-14 16:05 | NUR ---
Patient in bed resting comfortably. No c/o pain or discomfort. Respiration are non- labored on room air. Skin is clean, warm and dry to touch. IV access is patent, dry and secure, no s/sx of redness nor swelling observed. Bed is locked in lowest position for safety, call light in reach. Nurse will continue care, monitor for changes in status.
--- NOTE | 2022-01-14 18:36 | NUR ---
hcp after hours pillowcase turner called and talked to pillowcase turner informed that there is a order for transfer to [facility] to clinical laboratory science professor and she inform the insurance dont transfer to there they will find a place that has clinical laboratory science professor . transfered to the sales marketing director manager Jo-Ann who was here . Jo-Ann came back and said pt will not be going to [facility] paged doctor silas elias and informed him info
--- NOTE | 2022-01-14 19:03 | NUR ---
Spoke to Myrna at [facility]- She stated patient would be transferred to a Contracted Hospital for heart Cath. I sent her the information requested so she can set up transfer for Cardiac Cath. FAX # [phone]. I spoke to the patient and he stated understanding of information given regarding heart cath and the insurance is working on finding a contracted hospital for his heart catheterization for tomorrow.
--- NOTE | 2022-01-14 20:20 | NUR ---
errol from [employer] called said either we would have to wait till tommorow when they open to schedule or contact doctor fide elias if he can schedule . they said they do transfer to [facility] and fide elias said he does go there . called fide elias and informed him he said he is trying to see if he can schedule him and he will call back and let us know. rn aware Addendum: 01/14/22 at 2022 by Natalie Najera CNA errol call back is [phone]
--- NOTE | 2022-01-14 20:33 | NUR ---
dr silas elias called and asked to speak with nurse case manager i gave him errol number from hcp rn also spoke regarding medications while doctor was on the phone
[2022-01-14] MEDS: ATORVASTATIN 20 MG TABLET PO SCH (21:00)
--- NOTE | 2022-01-14 23:00 | NUR ---
pt.re-assigned.yara provided the pt's report/data.pt.presents quiescent affect;calm,resting.pt.presents iv access;location lt.forearm. pt's diet order status to convert to npo status.pt.to be transferred to mechanical shop laborer/[facility].arrangements in progress.pt's transfer no c/o pain,nausea.no requests posited@this hour.call light/telephone w/in access of the pt.
--- NOTE | 2022-01-15 | NUR ---
pt.assesed.v/s assessed values wnl.diet converted to npo.pt.presents no c/o pain,nausea.pt.capable to reposition self.call light/ telephpone w/in access of the pt.
--- NOTE | 2022-01-15 02:00 | NUR ---
pt.presents quiescent affect calm,resting.no c/o pian,nausea.pt.capable to reposition self.general status stable. respiratory status stable;unlabored.call light/telephone w/in access of the pt.
--- NOTE | 2022-01-15 02:27 | NUR ---
TRANSPORT AUTH. CALLED AND SPOKE WITH [facility] SPICE FUMIGATOR WHO GAVE AUTH [id number]
--- NOTE | 2022-01-15 02:34 | NUR ---
TRANSPORT CLIFFORD WELT STITCHER GAVE ME VERBAL AUTH SO I CAN SET UP SHE GAVE A LIST OF AMBULANCE THAT ARE CONTRACTED, [facility], [facility], [facility] AND [facility].. CALLED [facility] SPOKE WITH SANG AND PLACE IT ON WILL CALL. HE SAID THEY HAVE BEEN BUSY LATELY SO IT MIGHT BE FASTER TO HAVE INSURANCE CALL WHEN WE HAVE A BED. I INFORMED CLIFFORD THE CM OF WHAT WAS SAID AND SHE SAID OK. SHE WAS TOLD TO FOLLOW UP AT 0600 FOR BED AT [facility] AND SHE WILL CALL [facility] AND THEN CALL US . RN AND CHARGE NURSE AWARE OF UPDATE Addendum: 01/15/22 at 0242 by Natalie Najera CNA PT IS SET UP WITH [facility] FOR TELE MONITORING
--- NOTE | 2022-01-15 04:00 | NUR ---
pt.assessed.pt.presents quiescent affect;calm,somnolent.per tina/jacky hoyt.stephenie/fay w/sruthi nicolet. Addendum: 01/15/22 at 0419 by Jarrett Zurita RN kvgn;mt/us has apprised me of the up-date r/e:pt's transfer order/autherization.for am transfer to lab manager.[facility].
--- NOTE | 2022-01-15 06:16 | NUR ---
pt.assessed.pt.presents quiescent affect;calm,somnolent.per flacc pain mgx pt.absent facial grimaces/body posturing. pt.capable to reposition self.call light/telephone w/in access of the pt.
--- NOTE | 2022-01-15 06:33 | NUR ---
SPOKE TO [facility]/HCP CLIFFORD ASIF. SHE GAVE THESE FF INFO: [facility] WHOLESALE BUYER TIME IS 0930 AM DESTINATION : [facility] RM 200 A TEL NO TO GIVE REPORT: [phone] CATH PROCEDURE IS AT 1100 ADMITTING MD: DR BISHOP PENG.
[2022-01-15 06:36] LABS: BASOPHILS # (AUTO) 0.1 K/uL (0.0-0.2); BASOPHILS % (AUTO) 0.9 % (0.0-2.0); EOSINOPHILS # (AUTO) 0.4 K/uL (0.0-0.4); EOSINOPHILS % (AUTO) 5.5 % (0.0-4.0); HEMATOCRIT 29.4 % (36-54); HEMOGLOBIN 10.1 g/dL (14.0-18.0); LYMPHOCYTES % (AUTO) 28.8 % (20.5-51.5); MEAN CORPUSCULAR HEMOGLOBIN 32 pg (27-31); MEAN CORPUSCULAR HGB CONC 35 % (32-36); MEAN CORPUSCULAR VOLUME 91 fL (79.0-98.0); MONOCYTES # (AUTO) 0.6 K/uL (0.0-1.0); MONOCYTES % (AUTO) 8.7 % (1.7-9.3); NEUTROPHILS # (AUTO) 3.9 K/uL (1.8-7.7); NEUTROPHILS % (AUTO) 56.1 % (40.0-70.0); PLATELET COUNT (AUTO) 274 K/uL (130-430); RED BLOOD CELL COUNT(AUTO) 3.22 MIL/uL (4.2-6.2); RED CELL DISTRIBUTION WIDTH 13.6 % (9.0-15.0); WHITE BLOOD COUNT (AUTO) 6.9 K/uL (4.8-10.8)
--- NOTE | 2022-01-15 07:58 | NUR ---
SPOKE WITH Sal OF [facility], SHE CONFIRNED THAT PT IS GOING TO BE PICKED UP AT 0930 AM.
[2022-01-15 07:59] VITALS: BP_SYST 113
[2022-01-15 08:01] LABS: ALANINE AMINOTRANSFERASE 36 U/L (12-78); ALBUMIN 2.9 g/dL (3.4-4.8); ANION GAP 6 (5-15); ASPARTATE AMINOTRANSFERASE 32 U/L (10-37); CALCIUM 8.3 mg/dL (8.4-11.0); CHLORIDE 104 mmol/L (98-107); CREATININE 1.14 mg/dL (0.55-1.30); GLUCOSE 123 mg/dL (70-99); PHOSPHORUS 3.2 mg/dL (2.7-4.5); POTASSIUM 4.3 mmol/L (3.5-5.1); SODIUM SERUM 138 mmol/L (136-145); TOTAL BILIRUBIN 0.2 mg/dL (0.0-1.0); UREA NITROGEN, BLOOD 28 mg/dL (8-21)
[2022-01-15] MEDS ORDERED: HYDROCHLOROTHIAZIDE 25 MG TABLET (HCTZ) PO SCH (09:00)
[2022-01-15] MEDS ORDERED: CLOPIDOGREL BISULFATE 75 MG TABLET PO SCH (09:00)
[2022-01-15] MEDS ORDERED: HYDROCHLOROTHIAZIDE 12.5 MG CAPSULE (HCTZ) PO SCH (09:00)
[2022-01-15] MEDS ORDERED: amLODIPine BESYLATE 10 MG TABLET PO SCH (09:00)
[2022-01-15] MEDS: CARVEDILOL 6.25 MG TABLET (COREG) PO SCH (09:00)
[2022-01-15] MEDS ORDERED: CITALOPRAM HYDROBROMIDE 20 MG TABLET PO SCH ×2 (09:00)
[2022-01-15] MEDS ORDERED: lisinopriL 20 MG TABLET PO SCH (09:00)
[2022-01-15] MEDS: ASPIRIN 81 MG TABLET(ECOTRIN) PO SCH (09:00)
[2022-01-15] MEDS: NICOTINE 14 MG/24 HR PATCH.TD24 TD SCH (09:07)
[2022-01-15 09:17] VITALS: BP_SYST 141
--- NOTE | 2022-01-15 10:20 | NUR ---
PT TAKEN BY [facility] STAFF FOR CARDIAC CATH AT [facility] IN [place]. PT IS ON STABLE CONDITION. IV ACCESS KEPT FOR PROCEDURE. IT IS INTACT , PATENT AND DRY. ENDORSED TO AMBULANCE STAFF. REPORT GIVEN TO GREGOR DOE BY GREGOR CORTES. PT IS ON STABLE CONDITION.
== END 2022-01-15 10:20 | disposition short-term general hospital (02) | DRG 280 ==
LOC: SED 16:28 → STU 21:54
PROVIDERS: ADMIT Internal Medicine Hospice and Palliative Medicine; ATTEND Internal Medicine Hospice and Palliative Medicine
DX: I21.4 Non-ST elevation (NSTEMI) myocardial infarction (principal); N17.0 Acute kidney failure with tubular necrosis; E87.1 Hypo-osmolality and hyponatremia; I69.351 Hemiplegia and hemiparesis following cerebral infarction affecting right dominant side; E87.6 Hypokalemia; E78.5 Hyperlipidemia, unspecified; I10 Essential (primary) hypertension; F32.A Depression, unspecified; G89.29 Other chronic pain; I25.119 Atherosclerotic heart disease of native coronary artery with unspecified angina pectoris; E11.65 Type 2 diabetes mellitus with hyperglycemia; F41.9 Anxiety disorder, unspecified; F12.10 Cannabis abuse, uncomplicated; Z20.822 Contact with and (suspected) exposure to COVID-19; H54.61 Unqualified visual loss, right eye, normal vision left eye; D72.829 Elevated white blood cell count, unspecified; Z87.891 Personal history of nicotine dependence; Z88.0 Allergy status to penicillin; Z79.899 Other long term (current) drug therapy
CPT/HCPCS: 36415; 71045; 76770; 80048; 80053; 83735; 83880; 84100; 84484; 85025; 85379; 93005; 93306; 96360; 96372; 99291; G0378; J1650; J2270; J2405; J3490; J7030

== ENCOUNTER 2023-09-07 13:38 | Emergency (ER) | payer OTHER, MEDICAID ==
[~2023-09-07] VITALS: Ht 175.3 cm; Wt 71.7 kg
[~2023-09-07 13:38] MED LIST changes: +ACET325T PO; +CEL20 PO; +CLOP75TA32 PO; -CYM30 PO; -HYDR-4280 PO; +HYDR25TA4 PO; -IRBE75TA29 PO; -ISOS30TA85 PO; +LISI40TA13 PO; +METF-834 PO; -METO25TA6 PO; +NOR10 PO
[2023-09-07 13:40] VITALS: BP_SYST 147; PULSE 83; RESP 13; TEMP 97.8; O2SAT 97
[2023-09-07] MEDS ORDERED: MORPHINE 4 MG INJ. 4 MG/ML VIAL ONE (13:52)
[2023-09-07] MEDS ORDERED: NITROGLYCERIN 0.4 MG TAB.SUBL SL ONE (13:55)
[2023-09-07] MEDS ORDERED: HEPARIN SODIUM,PORCINE 5,000 UNITS/ML VIAL ONE (13:57)
[2023-09-07] MEDS ORDERED: ASPIRIN 325 MG TABLET (ECOTRIN) PO ONE (14:00)
[2023-09-07] MEDS ORDERED: ONDANSETRON HCL 4 MG/2 ML VIAL ONE (14:13)
[2023-09-07 14:22] VITALS: BP_SYST 126; PULSE 74; RESP 20; TEMP 97.9; O2SAT 95
[2023-09-07 14:25] LABS: BASOPHILS % (AUTO) 0.3 % (0.0-2.0); EOSINOPHILS # (AUTO) 0.2 K/uL (0.0-0.4); EOSINOPHILS % (AUTO) 1.3 % (0.0-4.0); HEMATOCRIT 38.8 % (36-54); HEMOGLOBIN 13.3 g/dL (14.0-18.0); LYMPHOCYTES # (AUTO) 1.2 K/uL (1.0-5.5); LYMPHOCYTES % (AUTO) 9.8 % (20.5-51.5); MEAN CORPUSCULAR HEMOGLOBIN 31 pg (27-31); MEAN CORPUSCULAR HGB CONC 34 % (32-36); MEAN CORPUSCULAR VOLUME 89 fL (79.0-98.0); MONOCYTES # (AUTO) 0.9 K/uL (0.0-1.0); MONOCYTES % (AUTO) 7.7 % (1.7-9.3); NEUTROPHILS # (AUTO) 9.6 K/uL (1.8-7.7); NEUTROPHILS % (AUTO) 80.9 % (40.0-70.0); PLATELET COUNT (AUTO) 323 K/uL (130-430); RED BLOOD CELL COUNT(AUTO) 4.35 MIL/uL (4.2-6.2); RED CELL DISTRIBUTION WIDTH 15.6 % (9.0-15.0); WHITE BLOOD COUNT (AUTO) 11.9 K/uL (4.8-10.8)
[2023-09-07 14:39] LABS: ANION GAP 16 (5-15); CALCIUM 9.8 mg/dL (8.4-11.0); CARBON DIOXIDE 24 mmol/L (23-29); CHLORIDE 100 mmol/L (98-107); CREATININE 1.42 mg/dL (0.55-1.30); GLUCOSE 256 mg/dL (74-106); POTASSIUM 3.1 mmol/L (3.5-5.1); SODIUM SERUM 140 mmol/L (136-145); UREA NITROGEN, BLOOD 12 mg/dL (8-21)
== END 2023-09-07 15:11 | disposition critical access hospital (66) ==
LOC: SED 13:38
DX: I21.3 ST elevation (STEMI) myocardial infarction of unspecified site (principal); I10 Essential (primary) hypertension; E11.9 Type 2 diabetes mellitus without complications; F12.90 Cannabis use, unspecified, uncomplicated; F17.210 Nicotine dependence, cigarettes, uncomplicated; Z88.0 Allergy status to penicillin; Z79.899 Other long term (current) drug therapy
CPT/HCPCS: 99291; 80048; 83880; 85025; 84484; 36415; 93005; J1644; J2270; J2405